=== PATIENT | female | born 1995 | race Asian ===

== ENCOUNTER 2018-10-09 03:10 | Emergency (ER) | payer OTHER ==
[~2018-10-09] VITALS: Ht 172.7 cm; Wt 72.6 kg
[2018-10-09 03:18] VITALS: Ht 172.7 cm; Wt 72.6 kg
[2018-10-09 04:41] VITALS: BP 110/51
== END 2018-10-09 05:23 | disposition home or self-care (01) ==
LOC: ED 03:10
DX: S09.8XXA Other specified injuries of head, initial encounter (principal); S16.1XXA Strain of muscle, fascia and tendon at neck level, initial encounter; V49.9XXA Car occupant (driver) (passenger) injured in unspecified traffic accident, initial encounter; Y93.89 Activity, other specified; Y92.488 Other paved roadways as the place of occurrence of the external cause; Y99.8 Other external cause status